=== PATIENT | female | born 1965 | race American Indian/Alaskan Native ===

== ENCOUNTER 2021-07-31 11:33 | Emergency (ER) | payer MEDICARE ==
--- NOTE | 2021-07-31 11:54 | Emergency Department Report ---
ED Abdominal Pain HPI - General Chief Complaint: Abdominal Pain Stated Complaint: STOMACH /VOMITING , Time Seen by Provider: 07/31/21 11:38 Source: patient Mode of arrival: Ambulatory Limitations: No Limitations - History of Present Illness Initial Comments: 50-year-old female with a past medical history of bipolar disorder, hypertension, hypokalemia, chronic pain, currently being treated with oxycodone presents to the ER today with complaints of vomiting and abdominal pain. Patient states that symptoms started 2 weeks ago. Patient states that she has been nauseous and vomiting every day for the past 2 weeks. She states that she is unable to keep anything down. She states that her emesis is mainly bile and liquid. She denies any hematemesis or coffee-ground emesis. She reports associated decreased appetite and intermittent left-sided abdominal pain. She states that she has not been able to have a good bowel movement in the past 2 weeks and when she does get the urge to go, only very small "squirt" of stool comes out. She denies any apparent hematochezia, melena or mucus in her stool. She also reports that she has not been able to urinate in about 1 week. She denies any fever or chills. Abdominal surgery includes tubal ligation, appendectomy and cholecystectomy. He states that she had a colonoscopy last year, and had some polyps removed which were noncancerous. She is She states that she had similar symptoms about 2 to 3 months ago and was seen at [facility] ER. She states that she had a CT scan of the abdomen done at the time but they told her that they could not find anything in for her to follow-up with her primary care doctor. She states that she did call to make an appointment with her PCP but they were unable to see her until August. Complaint: abdominal pain, other (Vomiting) -: Gradual, week(s) (2) - Related Data Previous Rx's Medication Instructions Recorded Last Taken Type Docusate Sodium [Colace] 100 mg PO BID #60 capsule 07/31/21 Unknown Rx Hyoscyamine Subl [Levsin Sl 0.125 0.125 mg SL Q6HR PRN #20 tab 07/31/21 Unknown Rx TAB] Ondansetron [Zofran Odt] 4 mg PO Q8HR PRN #12 tab.rapdis 07/31/21 Unknown Rx Allergies Allergy/AdvReac Type Severity Reaction Status Date / Time No Known Allergies Allergy Unverified 07/31/21 11:35 ED Review of Systems ROS: Stated complaint: STOMACH /VOMITING , Other details as noted in HPI ED Past Medical Hx - Past Medical History Hx Hypertension: Yes - Surgical History Past Surgical History?: Yes - Medications Home Medications: Home Medications Medication Instructions Recorded Confirmed Last Taken Type Docusate Sodium [Colace] 100 mg PO BID #60 capsule 07/31/21 Unknown Rx Hyoscyamine Subl [Levsin Sl 0.125 0.125 mg SL Q6HR PRN #20 tab 07/31/21 Unknown Rx TAB] Ondansetron [Zofran Odt] 4 mg PO Q8HR PRN #12 tab.rapdis 07/31/21 Unknown Rx ED Physical Exam - General Limitations: No Limitations ED Course Vital Signs 07/31/21 11:37 Temperature 98.0 F Pulse Rate 81 Respiratory 18 Rate Blood Pressure 165/109 O2 Sat by Pulse 99 Oximetry ED Medical Decision Making - Lab Data Result diagrams: 07/31/21 12:06 07/31/21 12:06 - Radiology Data Radiology results: report reviewed Patient: JUAN CALLAHAN MR#: [id number] 58 : 1965 Acct:[id number] Age/Sex: 56 / F ADM Date: 07/31/21 Loc: ED Attending Dr: Ordering Physician: EM ADAMS Date of Service: 07/31/21 Procedure(s): CT abdomen pelvis w con Accession Number(s): [id number] cc: EM ADAMS CT abdomen pelvis w con INDICATION: Left sided abd pain/nausea/vomting 100 ml omni 300. COMPARISON: None TECHNIQUE: Abdominal and pelvic CT exam performed. All CT scans at this location are performed using CT dose reduction for ALARA by means of automated exposure control. FINDINGS: CT ABDOMEN and PELVIS: Lung Bases: No significant abnormality. Liver: No significant abnormality. Biliary: Gallbladder is surgically absent. Spleen: No significant abnormality. Pancreas: No significant abnormality. Adrenals: No significant abnormality. Kidneys: No significant abnormality. Lymphatics: No lymphadenopathy. Vasculature: No significant abnormality. Bowel: No significant abnormality. Appendix is nonvisualized. However, no inflammatory changes in the right lower quadrant to suggest appendicitis. Pelvis: No significant abnormality. Osseous Structures: No aggressive osseous lesion. Additional Findings: None IMPRESSION: 1. No significant abnormality of the abdomen or pelvis. Signer Name: Lenard Manrique MD Signed: 07/31/2021 2:49 PM Workstation Name: [id number] Transcribed By: Dictated By: Lenard Manrique MD Electronically Authenticated By: Lenard Manrique MD Signed Date/Time: 07/31/211448 DD/ 46 TD/TT: - Medical Decision Making 1657: Patient resting comfortably in the bed. She reports improvement of her pain after meds. Repeat abdominal exam shows soft nontender abdomen. All labs reviewed -CBC unremarkable. CMP shows mild elevation in her blood sugar (132) but otherwise also unremarkable. Lipase normal.. Urinalysis negative for UTI. CT abdomen pelvis shows nothing acute. Repeat vital signs shows improvement of her blood pressure and otherwise stable. Discussed all lab results including CT abdomen pelvis results with patient. At this time exact cause of her symptoms unclear, there is no indication for admission or surgical consult. I did recommend to patient that she follows up with a GI specialist since this is her second visit to the ER for this in the past 2 months. In the meantime she will be prescribed medication to help with nausea no vomiting, and her abdominal cramps and also Colace since she states that she has not been able to have a good bowel movement in about 2 weeks. Patient expressed understanding of all instructions and agree with plan. Patient was stable at time of discharge. - Differential Diagnosis Diverticulitis, pancreatitis, bowel perforation, pyelonephritis, dehydratio Critical care attestation.: If time is entered above; I have spent that time in minutes in the direct care of this critically ill patient, excluding procedure time. ED Disposition Clinical Impression: Left sided abdominal pain, Nausea and vomiting Disposition: 01 HOME / SELF CARE / HOMELESS Is pt being admited?: No Does the pt Need Aspirin: No Condition: Stable Instructions: Abdominal Pain, Adult, Nausea and Vomiting, Adult, Abdominal Pain (ED) Additional Instructions: Take the colace as prescribed. This will help with your bowel movements. Take the zofran as prescribed to help with nausea and vomiting. Take the levsin as prescribed to help with pain. You can continue taking your oxycodone as prescribed for your chronic pain. I do recommend following up with Gastroenterolist for further evaluation and a colonoscopy and endoscopy. A motor driver will be provided for you on your discharge instructions. Return to the ER if your symptoms changes or worsens in any way. Prescriptions: Docusate Sodium [Colace] 100 mg PO BID #60 capsule Hyoscyamine Subl [Levsin Sl 0.125 TAB] 0.125 mg SL Q6HR PRN #20 tab PRN Reason: Abdominal pain Ondansetron [Zofran Odt] 4 mg PO Q8HR PRN #12 tab.rapdis PRN Reason: Vomiting Referrals: PRIMARY CARE, [Primary Care Provider] - 3-5 Days [facility] [Provider Group] - 3-5 Days Forms: Work/School Release Form(ED) Time of Disposition: 16:41
[2021-07-31] MEDS ORDERED: SODIUM CHLORIDE 0.9% 1000 ML 1,000 ML IV ONE (11:55)
[2021-07-31] MEDS ORDERED: MORPHINE 4 MG/1 ML INJ IV ONE (11:55)
[2021-07-31] MEDS ORDERED: ONDANSETRON 4 MG/2 ML INJ IV ONE (11:55)
[2021-07-31 12:47] LABS: Basophils % (Auto) 0.7 % (0.0-1.8); Eosinophils % (Auto) 0.8 % (0.0-4.3); Hematocrit 42.8 % (30.3-42.9); Hemoglobin 14.6 gm/dl (10.1-14.3); Lymphocytes # (Auto) 1.9 K/mm3 (1.2-5.4); Lymphocytes % (Auto) 34.6 % (13.4-35.0); Mean Corpuscular HGB Conc 34 % (30-34); Mean Corpuscular Volume 93 fl (79-97); Monocytes # (Auto) 0.5 K/mm3 (0.0-0.8); Monocytes % (Auto) 8.1 % (0.0-7.3); Platelet Count 222 K/mm3 (140-440); Red Blood Count 4.58 M/mm3 (3.65-5.03); Red Cell Distribution Width 15.8 % (13.2-15.2)
[2021-07-31 13:04] LABS: Alanine Aminotransferase 36 units/L (7-56); Albumin 4.1 g/dL (3.9-5); Bilirubin,Direct 0.3 mg/dL (0-0.2); Blood Urea Nitrogen 9 mg/dL (7-17); Hemolysis Index 12
[2021-07-31 14:12] LABS: BUN/Creatinine Ratio 13
--- NOTE | 2021-07-31 14:54 | Cat Scan Report ---
CT abdomen pelvis w con INDICATION: Left sided abd pain/nausea/vomting 100 ml omni 300. COMPARISON: None TECHNIQUE: Abdominal and pelvic CT exam performed. All CT scans at this location are performed using CT dose reduction for ALARA by means of automated exposure control. FINDINGS: CT ABDOMEN and PELVIS: Lung Bases: No significant abnormality. Liver: No significant abnormality. Biliary: Gallbladder is surgically absent. Spleen: No significant abnormality. Pancreas: No significant abnormality. Adrenals: No significant abnormality. Kidneys: No significant abnormality. Lymphatics: No lymphadenopathy. Vasculature: No significant abnormality. Bowel: No significant abnormality. Appendix is nonvisualized. However, no inflammatory changes in th e right lower quadrant to suggest appendicitis. Pelvis: No significant abnormality. Osseous Structures: No aggressive osseous lesion. Additional Findings: None IMPRESSION: 1. No significant abnormality of the abdomen or pelvis. Signer Name: Lenard Manrique MD Signed: 07/31/2021 2:49 PM Workstation Name: [id number]
[2021-07-31 16:31] LABS: Bacteria,Urine 1+ /HPF (Negative); Bilirubin,Urine NEG (Negative); Blood,Urine NEG (Negative); Color,Urine Yellow (Yellow); Mucus,Urine 3+ /HPF
[2021-07-31 17:09] VITALS: BP 139/91
== END 2021-07-31 17:38 | disposition home or self-care (01) ==
LOC: ED 11:33
DX: R10.9 Unspecified abdominal pain (principal); R11.2 Nausea with vomiting, unspecified; Z98.890 Other specified postprocedural states
CPT/HCPCS: 36415; 74177; 80048; 80076; 81001; 83690; 84703; 85025; 96374; 96375; 99284; J2270; J2405; J7030; Q9967